=== PATIENT | female | born 1990 | race Caucasian/White ===

== ENCOUNTER 2016-09-12 17:01 | Inpatient (IN) | payer BC ==
[~2016-09-12] VITALS: Ht 162.6 cm; Wt 83.0 kg
[2016-09-12] VITALS (7 sets, daily range): BP systolic 110–131; BP diastolic 56–77
[~2016-09-12 17:01] MED LIST: MOTRIN600 MG PO; PRENATAL TABLE1 EAC3 PO
[2016-09-12 17:40] LABS: EOSINOPHIL (%) 0.1 % (0-5); HEMATOCRIT 36.7 % (36.0-46.0); IMMATURE GRANULOCYTE COUNT 0.1 K/uL; INSTRUMENT ABS NEUTROPHIL CT 8.9 K/uL; LYMPHOCYTE COUNT 1.8 K/uL (1.0-2.8); MCH 30.2 PG (29.0-34.0); MCHC 33.2 G/DL (30.0-36.0); MCV 90.8 FL (83-99); MEAN PLAT.VOLUME 13.3 uM^3 (9.5-12.4); MONOCYTE COUNT 0.6 K/uL (0-0.8); NEUTROPHIL (%) 77.9 % (45-76); NEUTROPHIL COUNT 8.9 K/uL (1.8-6.4); PLATELET COUNT 106 K/uL (156-360); RBC DIS.WIDTH-CV 14.3 % (11.8-14.6); RBC DIS.WIDTH-SD 47.2 % (39-53); RED BLOOD COUNT 4.04 M/uL (3.80-5.20); WHITE BLOOD COUNT 11.5 K/uL (4.1-10.2)
[2016-09-12] MEDS ORDERED: KEFLEX500 MG PO (19:02)
[2016-09-13] VITALS (10 sets, daily range): BP systolic 117–147; BP diastolic 63–83
[2016-09-14 07:25] VITALS: BP 116/67
[2016-09-14 07:30] LABS: EOSINOPHIL COUNT 0.2 K/uL (0-0.3); HEMATOCRIT 30.8 % (36.0-46.0); IMMATURE GRANULOCYTE (%) 1.3 % (0.0-0.7); IMMATURE GRANULOCYTE COUNT 0.1 K/uL; INSTRUMENT ABS NEUTROPHIL CT 5.5 K/uL; LYMPHOCYTE COUNT 2.2 K/uL (1.0-2.8); MCH 31.8 PG (29.0-34.0); MCHC 34.1 G/DL (30.0-36.0); MCV 93.3 FL (83-99); MEAN PLAT.VOLUME 13.2 uM^3 (9.5-12.4); MONOCYTE (%) 5.2 % (3-12); MONOCYTE COUNT 0.4 K/uL (0-0.8); NEUTROPHIL (%) 64.7 % (45-76); NEUTROPHIL COUNT 5.5 K/uL (1.8-6.4); PLATELET COUNT 77 K/uL (156-360); RBC DIS.WIDTH-CV 14.6 % (11.8-14.6); RBC DIS.WIDTH-SD 49.1 % (39-53); WHITE BLOOD COUNT 8.5 K/uL (4.1-10.2)
[2016-09-14 14:00] VITALS: BP 130/70
== END 2016-09-14 18:12 | disposition home or self-care (01) | DRG 774 ==
LOC: LDRP-OP → 2WEST 17:03 → LDRP-OP 10-06 16:12
PROVIDERS: Advanced Practice Midwife
DX: O99.12 Other diseases of the blood and blood-forming organs and certain disorders involving the immune mechanism complicating childbirth (principal); D69.6 Thrombocytopenia, unspecified; O48.0 Post-term pregnancy; Z3A.41 41 weeks gestation of pregnancy; O70.1 Second degree perineal laceration during delivery; O75.3 Other infection during labor; O42.02 Full-term premature rupture of membranes, onset of labor within 24 hours of rupture; Z37.0 Single live birth; O99.824 Streptococcus B carrier state complicating childbirth; N39.0 Urinary tract infection, site not specified
CPT/HCPCS: 85025; G0378; J2540; J7120